=== PATIENT | female | born 1950 | race Caucasian/White ===

== ENCOUNTER → 2016-06-03 | Outpatient (CLI) | payer OTHER | LOC: BRMIMAGING 08:24 | DX: Z12.31 Encounter for screening mammogram for malignant neoplasm of breast (principal); Z90.11 Acquired absence of right breast and nipple | CPT/HCPCS: G0202-52 ==

== ENCOUNTER → 2017-06-24 | Outpatient (CLI) | payer OTHER | LOC: BRMIMAGING 14:02 | PROVIDERS: ATTEND Family Medicine | DX: Z12.31 Encounter for screening mammogram for malignant neoplasm of breast (principal); Z85.3 Personal history of malignant neoplasm of breast; Z90.12 Acquired absence of left breast and nipple ==

== ENCOUNTER → 2018-08-11 | Outpatient (CLI) | payer OTHER | LOC: BRMIMAGING 07:59 ==